=== PATIENT | female | born 1940 | race Two or more races ===

== ENCOUNTER 2023-01-11 07:00 | Inpatient (IN) | payer MEDICARE ==
[~2023-01-11] VITALS: Ht 165.1 cm; Wt 70.4 kg
[2023-01-11 08:18] LABS: Basophils # (auto) 0 10 ^3/uL (0-0.2); Basophils % (auto) 0.4 % (0.0-2.0); Eosinophils # (auto) 0 10 ^3/uL (0-0.8); Hematocrit 43.2 % (36.0-46.0); Hemoglobin 14.7 g/dL (12.2-16.2); Lymphocytes # (auto) 0.8 10 ^3/uL (0.4-5.4); Lymphocytes % (auto) 19.3 % (10.0-50.0); Mean Corpuscular Hemoglobin 32.5 pg (28.0-32.0); Mean Corpuscular Hgb Conc. 34.1 g/dL (32.0-36.0); Mean Corpuscular Volume 95.3 fL (80.0-100.0); Monocytes # (auto) 0.4 10 ^3/uL (0-1.3); Monocytes % (auto) 10.7 % (0.0-12.0); Neutrophils # (auto) 2.9 10 ^3/uL (1.6-8.6); Neutrophils % (auto) 69.6 % (37.0-80.0); Nucleated Red Blood Cells % 0.4 %; Red Blood Cells 4.53 10^6/uL (4.0-5.20); Red Cell Distribution Width 13.4 % (11.8-14.3); White Blood Cell 4.2 10^3/uL (4.4-10.8)
[2023-01-11 08:35] LABS: Alanine Aminotransferase 41 U/L (7-40); Albumin 4.4 g/dL (3.2-4.8); Alkaline Phosphatase 70 U/L (46-116); Anion Gap 9 (5-15); Aspartate Aminotransferase 62 U/L (13-40); BUN/Creatinine Ratio 24.8 (10.0-20.0); Bilirubin, Total 0.8 mg/dL (0.2-1.0); Blood Urea Nitrogen 27 mg/dL (9-23); Calcium 9.3 mg/dL (8.5-10.1); Carbon Dioxide 28 mmol/L (20-30); Chloride 99 mmol/L (98-107); Glucose 116 mg/dL (74-106); Potassium 3.2 mmol/L (3.5-5.1); Sodium 136 mmol/L (136-145)
[2023-01-11 08:36] LABS: Total Protein 6.7 g/dL (5.7-8.2)
[2023-01-11] MEDS ORDERED: SODIUM CHLORIDE 0.9% 1,000 ML IV ONE (10:45)
[2023-01-11] MEDS ORDERED: SODIUM CHLORIDE 0.9% 500 ML IVB ONE (10:45)
[2023-01-11] MEDS ORDERED: IOHEXOL 300 MG/ML 100ML BOTTLE IJ ONE (10:47)
[2023-01-11 11:49] LABS: INR 1.02 (0.9-1.15); Partial Thromboplastin Time 26.3 SEC (24.5-34.5); Prothrombin Time 10.7 sec (9.3-11.8)
[2023-01-11 12:28] LABS: Urine Bacteria NONE SEEN /hpf (None Seen); Urine Blood Negative /uL (Negative); Urine Clarity Clear (Clear); Urine Color Yellow (Yellow); Urine Protein, UAD 1+ (Negative); Urine Specific Gravity 1.021 (1.001-1.035); Urine Urobilinogen Normal (Negative); Urine WBC 5 /hpf (0 - 5)
[2023-01-11] MEDS ORDERED: POTASSIUM EFFERVESENT TAB 25 MEQ PO ONE (13:15)
[2023-01-11] MEDS ORDERED: LIOT5TAB20 PO (14:43)
[2023-01-11] MEDS ORDERED: LOS25T PO (14:43)
[2023-01-11] MEDS ORDERED: HYDR25TA5 PO (14:43)
[2023-01-11] MEDS ORDERED: ATEN50TA PO (14:43)
[2023-01-11] MEDS ORDERED: PANTOPRAZOLE 40 MG/10 ML VIAL INJ IV ONE (14:45)
[2023-01-11] MEDS ORDERED: ACETAMINOPHEN 325 MG TAB PO PRN (14:45)
[2023-01-11] MEDS ORDERED: ALBUTEROL SULF 2.5 MG/0.5ML(0.5%) NEB SOLN NEB PRN (15:30)
[2023-01-11 15:44] VITALS: BP 106/55; PULSE 58; RESP 17; TEMP 97.4; O2SAT 97
[2023-01-11 15:50] VITALS: O2SAT 97
[2023-01-11] MEDS: SODIUM CHLORIDE 0.9% 1,000 ML IV SCH (18:13)
[2023-01-11 23:19] VITALS: PULSE 63; RESP 18; O2SAT 96
[2023-01-12] VITALS (10 sets, daily range): BP systolic 130–156; BP diastolic 48–59; PULSE 55–69; RESP 16–20; TEMP 97.8–99.8; O2SAT 90–94
[2023-01-12] MEDS ORDERED: ASPI81CH59 PO (02:37)
[2023-01-12] MEDS: SODIUM CHLORIDE 0.9% 1,000 ML IV SCH ×2 (04:05→17:25)
[2023-01-12 06:19] LABS: Alanine Aminotransferase 27 U/L (7-40); Albumin 3.9 g/dL (3.2-4.8); Alkaline Phosphatase 59 U/L (46-116); Anion Gap 9 (5-15); Aspartate Aminotransferase 45 U/L (13-40); BUN/Creatinine Ratio 15.9 (10.0-20.0); Bilirubin, Total 0.7 mg/dL (0.2-1.0); Blood Urea Nitrogen 13 mg/dL (9-23); Calcium 8.6 mg/dL (8.7-10.4); Carbon Dioxide 25 mmol/L (20-30); Chloride 102 mmol/L (98-107); Sodium 136 mmol/L (136-145); Total Protein 6.1 g/dL (5.7-8.2)
[2023-01-12 06:22] LABS: Basophils # (auto) 0 10 ^3/uL (0-0.2); Basophils % (auto) 0.4 % (0.0-2.0); Eosinophils # (auto) 0 10 ^3/uL (0-0.8); Hematocrit 37.6 % (36.0-46.0); Hemoglobin 12.9 g/dL (12.2-16.2); Lymphocytes # (auto) 0.6 10 ^3/uL (0.4-5.4); Lymphocytes % (auto) 19.6 % (10.0-50.0); Mean Corpuscular Hemoglobin 32.8 pg (28.0-32.0); Mean Corpuscular Hgb Conc. 34.2 g/dL (32.0-36.0); Monocytes # (auto) 0.4 10 ^3/uL (0-1.3); Monocytes % (auto) 12.6 % (0.0-12.0); Neutrophils # (auto) 2.2 10 ^3/uL (1.6-8.6); Neutrophils % (auto) 67.4 % (37.0-80.0); Nucleated Red Blood Cells % 0.3 %; Potassium 2.8 mmol/L (3.5-5.1); Red Blood Cells 3.92 10^6/uL (4.0-5.20); White Blood Cell 3.3 10^3/uL (4.4-10.8)
[2023-01-12] MEDS ORDERED: POTASSIUM CHL 20 Meq TABLET PO ONE (07:00)
[2023-01-12 07:35] LABS: Glucose 103 mg/dL (74-106)
[2023-01-12] MEDS: PANTOPRAZOLE 40 MG/10 ML VIAL INJ IV SCH (08:37)
[2023-01-12] MEDS ORDERED: ATENOLOL 25 MG TAB PO ONE (17:15)
[2023-01-12] MEDS: ONDANSETRON HCL 4 MG/2 ML VIAL IV PRN (17:35)
[2023-01-12] MEDS: guaiFENesin-DM 100/10mg/5ml SYR PO PRN (23:36)
[2023-01-13] VITALS (10 sets, daily range): BP systolic 126–145; BP diastolic 42–57; PULSE 55–65; RESP 18; TEMP 98.1–98.8; O2SAT 90–94
[2023-01-13] MEDS: SODIUM CHLORIDE 0.9% 1,000 ML IV SCH ×2 (01:27→22:40)
[2023-01-13 06:59] LABS: Basophils # (auto) 0 10 ^3/uL (0-0.2); Basophils % (auto) 0.8 % (0.0-2.0); Eosinophils # (auto) 0 10 ^3/uL (0-0.8); Hematocrit 38.1 % (36.0-46.0); Hemoglobin 12.7 g/dL (12.2-16.2); Lymphocytes # (auto) 0.9 10 ^3/uL (0.4-5.4); Lymphocytes % (auto) 31.6 % (10.0-50.0); Mean Corpuscular Hemoglobin 32.4 pg (28.0-32.0); Mean Corpuscular Hgb Conc. 33.3 g/dL (32.0-36.0); Mean Corpuscular Volume 97.4 fL (80.0-100.0); Monocytes # (auto) 0.4 10 ^3/uL (0-1.3); Monocytes % (auto) 13.8 % (0.0-12.0); Neutrophils # (auto) 1.6 10 ^3/uL (1.6-8.6); Neutrophils % (auto) 53.8 % (37.0-80.0); Nucleated Red Blood Cells % 0.3 %; Red Blood Cells 3.91 10^6/uL (4.0-5.20); Red Cell Distribution Width 13.7 % (11.8-14.3); White Blood Cell 2.9 10^3/uL (4.4-10.8)
[2023-01-13 07:03] LABS: Alanine Aminotransferase 27 U/L (7-40); Albumin 3.5 g/dL (3.2-4.8); Alkaline Phosphatase 50 U/L (46-116); Anion Gap 8 (5-15); Aspartate Aminotransferase 46 U/L (13-40); BUN/Creatinine Ratio 13.5 (10.0-20.0); Bilirubin, Total 0.6 mg/dL (0.2-1.0); Blood Urea Nitrogen 10 mg/dL (9-23); Calcium 8.2 mg/dL (8.5-10.1); Carbon Dioxide 25 mmol/L (20-30); Chloride 107 mmol/L (98-107); Glucose 102 mg/dL (74-106); Potassium 3.3 mmol/L (3.5-5.1); Sodium 140 mmol/L (136-145); Total Protein 5.6 g/dL (5.7-8.2)
[2023-01-13] MEDS ORDERED: POTASSIUM EFFERVESENT TAB 25 MEQ PO ONE (08:15)
[2023-01-13] MEDS: PANTOPRAZOLE 40 MG/10 ML VIAL INJ IV SCH (09:45)
[2023-01-13] MEDS: ATENOLOL 50 MG TAB PO SCH (09:46)
[2023-01-13] MEDS: LIOTHYRONINE 5 MCG PO SCH (10:00)
[2023-01-13] MEDS: ONDANSETRON HCL 4 MG/2 ML VIAL IV PRN (16:30)
[2023-01-13] MEDS: guaiFENesin-DM 100/10mg/5ml SYR PO PRN (16:37)
[2023-01-14] MEDS: guaiFENesin-DM 100/10mg/5ml SYR PO PRN (01:37)
[2023-01-14 05:00] VITALS: BP 148/52; PULSE 61; RESP 20; TEMP 99.3; O2SAT 93
[2023-01-14 07:20] LABS: Basophils # (auto) 0 10 ^3/uL (0-0.2); Basophils % (auto) 0.4 % (0.0-2.0); Eosinophils # (auto) 0 10 ^3/uL (0-0.8); Hematocrit 39.2 % (36.0-46.0); Hemoglobin 13.3 g/dL (12.2-16.2); Lymphocytes # (auto) 0.9 10 ^3/uL (0.4-5.4); Lymphocytes % (auto) 17.2 % (10.0-50.0); Mean Corpuscular Hemoglobin 32.5 pg (28.0-32.0); Mean Corpuscular Hgb Conc. 34.1 g/dL (32.0-36.0); Mean Corpuscular Volume 95.5 fL (80.0-100.0); Monocytes # (auto) 0.4 10 ^3/uL (0-1.3); Monocytes % (auto) 8.5 % (0.0-12.0); Neutrophils # (auto) 3.9 10 ^3/uL (1.6-8.6); Neutrophils % (auto) 73.9 % (37.0-80.0); Nucleated Red Blood Cells % 0.1 %; Red Cell Distribution Width 13.6 % (11.8-14.3); White Blood Cell 5.3 10^3/uL (4.4-10.8)
[2023-01-14 07:48] LABS: Alkaline Phosphatase 57 U/L (46-116)
[2023-01-14 07:49] LABS: Alanine Aminotransferase 36 U/L (7-40); Albumin 3.9 g/dL (3.2-4.8); Anion Gap 8 (5-15); Aspartate Aminotransferase 54 U/L (13-40); BUN/Creatinine Ratio 10.8 (10.0-20.0); Blood Urea Nitrogen 8 mg/dL (9-23); Calcium 8.5 mg/dL (8.5-10.1); Carbon Dioxide 25 mmol/L (20-30); Chloride 103 mmol/L (98-107); Glucose 110 mg/dL (74-106); Potassium 3.6 mmol/L (3.5-5.1); Sodium 136 mmol/L (136-145)
[2023-01-14 07:50] LABS: Bilirubin, Total 0.9 mg/dL (0.2-1.0); Total Protein 6.2 g/dL (5.7-8.2)
[2023-01-14 08:00] VITALS: O2SAT 92
[2023-01-14] MEDS: LIOTHYRONINE 5 MCG PO SCH (08:19)
[2023-01-14] MEDS: PANTOPRAZOLE 40 MG/10 ML VIAL INJ IV SCH (08:21)
[2023-01-14] MEDS: ONDANSETRON HCL 4 MG/2 ML VIAL IV PRN (08:21)
[2023-01-14 09:00] VITALS: BP 137/56; PULSE 73; RESP 14; TEMP 98.6; O2SAT 90
[2023-01-14 09:02] LABS: Magnesium 1.5 mg/dL (1.6-2.6)
[2023-01-14 09:44] VITALS: O2SAT 94
[2023-01-14] MEDS: ATENOLOL 50 MG TAB PO SCH (10:26)
[2023-01-14] MEDS ORDERED: MAGNESIUM SULFATE 1GM/100ML 100 ML IV ONE (10:45)
[2023-01-14] MEDS ORDERED: POTASSIUM EFFERVESENT TAB 25 MEQ PO ONE (10:45)
[2023-01-14] MEDS ORDERED: LOPERAMIDE HCL 2 MG CAP/TAB PO PRN (11:30)
[2023-01-14 13:00] VITALS: BP 153/54; PULSE 57; RESP 14; TEMP 97.7; O2SAT 92
[2023-01-14] MEDS ORDERED: PANT40TA2 PO (14:14)
[2023-01-14 15:03] VITALS: BP 137/56; PULSE 73; TEMP 36.5
[2023-01-15] MEDS ORDERED: FLORASTOR (S. BOULARDII) 250 MG CAP PO SCH (10:00)
== END 2023-01-14 15:55 | disposition home or self-care (01) | DRG 378 ==
LOC: EDBD 07:00 → ER 07:00 → OVERFLOW 14:43 → EAST 01-12 02:26
PROVIDERS: ADMIT Internal Medicine; ATTEND Internal Medicine
DX: K29.71 Gastritis, unspecified, with bleeding (principal); N17.9 Acute kidney failure, unspecified; K27.4 Chronic or unspecified peptic ulcer, site unspecified, with hemorrhage; E87.6 Hypokalemia; K44.9 Diaphragmatic hernia without obstruction or gangrene; J44.9 Chronic obstructive pulmonary disease, unspecified; K57.30 Diverticulosis of large intestine without perforation or abscess without bleeding; I12.9 Hypertensive chronic kidney disease with stage 1 through stage 4 chronic kidney disease, or unspecified chronic kidney disease; E03.9 Hypothyroidism, unspecified; E83.42 Hypomagnesemia; R74.01 Elevation of levels of liver transaminase levels; N18.30 Chronic kidney disease, stage 3 unspecified; Z60.2 Problems related to living alone; F17.210 Nicotine dependence, cigarettes, uncomplicated; Z88.0 Allergy status to penicillin; Z90.49 Acquired absence of other specified parts of digestive tract; Z90.710 Acquired absence of both cervix and uterus
CPT/HCPCS: 36415; 71046; 74176; 76705; 80053; 81001; 82270; 83735; 84132; 84436; 84443; 84484; 85025; 85610; 85730; 86850; 86900; 86901; 87045; 87177; 87427; 87493; 93005; 96374; 97163; C9113; G0378; J2405

== ENCOUNTER → 2023-02-01 | Outpatient (CLI) | payer MEDICARE ==
[~2023-02-01] MED LIST: ATEN50TA PO; HYDR25TA5 PO; LIOT5TAB20 PO; LOS25T PO; PANT40TA2 PO
== END | disposition home or self-care (01) ==
LOC: XYW 15:07
PROVIDERS: ATTEND Internal Medicine
DX: J84.9 Interstitial pulmonary disease, unspecified (principal); R91.8 Other nonspecific abnormal finding of lung field; R06.09 Other forms of dyspnea
CPT/HCPCS: 78582; A9540; A9558